=== PATIENT | female | born 1950 ===

== ENCOUNTER 2018-07-30 17:55 | Emergency (ER) | payer OTHER ==
[2018-07-30 17:55] VITALS: BMI 34.0
--- NOTE | 2018-07-30 19:55 | ED PDOC ---
HPI: General Adult Time Seen by Provider: 07/30/18 18:55 Chief Complaint (Nursing): Lower Extremity Problem/Injury Chief Complaint (Provider): Lower Extremity Problem/Injury History Per: Patient, Upper Doubler (Louise Porter # [id number]) History/Exam Limitations: language barrier Onset/Duration Of Symptoms: Other (x4 weeks) Current Symptoms Are (Timing): Still Present Additional Complaint(s): Patient is a 67 y/o female with a PMHx of HTN and hypothyroidism who presents to the ED for evaluation of multisystem pain ongoing for the past four weeks. Patient reports she had fallen on 07/03/2018 and as a result has been experiencing back pain, bilateral leg pain that is worse on the right, and lower abdominal "rumbling". Patient states she cannot stand for too long and feels like her legs are going to give out. Patient claims she went to the hospital at the time of fall and her xrays at the time demonstrated no indication of fractures or dislocations. Patient followed up with another hospital as she continued to feel discomfort and was prescribed seven days of unknown pain medication which she completed. Patient states the pain is worsening, thus, prompting todays ED visit. Of note, patient has been taking Tylenol with minimal relief of symptoms. Patient has been keeping up with her medication for HTN and hypothyroidism. Patient denies head injury, LOC, chest pain and difficulty breathing. PCP: None Past Medical History Reviewed: Historical Data, Nursing Documentation, Vital Signs Vital Signs: Last Vital Signs Temp 98.6 F 07/30/18 18:18 Pulse 79 07/30/18 18:18 Resp 16 07/30/18 18:18 BP 130/76 07/30/18 18:18 Pulse Ox 97 07/30/18 18:18 Primary Care Provider: ROLY VALENZUELA - Medical History PMH: HTN, Hypothyroidism - Surgical History Surgical History: Cholecystectomy Other surgeries: x2 hernia surgeries - Family History Family History: States: Unknown Family Hx - Immunization History Hx Tetanus Toxoid Vaccination: Yes Hx Influenza Vaccination: Yes Hx Pneumococcal Vaccination: Yes - Home Medications Home Medications: Ambulatory Orders Medication Instructions Recorded Cefpodoxime [Vantin] 40 mg PO BID #28 tab 04/12/17 Cranberry Fruit Extract [Cranberry] 500 mg PO BID #30 capsule 04/12/17 Losartan [Cozaar] 50 mg PO BID 04/12/17 Acetaminophen [Tylenol Extra 500 mg PO Q4H 07/05/18 Strength] Cyclobenzaprine [Flexeril] 5 mg PO TID #21 tab 07/05/18 Ibuprofen 200 mg PO Q6H 07/05/18 Naproxen [Naprosyn] 500 mg PO BID #20 tab 07/05/18 Neomycin/Polymyxin/Hydrocortis 3 drop AU BID 7 Days #1 bottle 07/20/18 [Cortisporin Otic Susp] Cephalexin [Keflex] 500 mg PO TID 7 Days #21 capsule 07/30/18 Cyclobenzaprine [Cyclobenzaprine 10 mg PO TID PRN #12 tab 07/30/18 HCl] Naproxen 500 mg PO BID PRN #20 tab 07/30/18 - Allergies Allergies/Adverse Reactions: Allergies Allergy/AdvReac Type Severity Reaction Status Date / Time No Known Allergies Allergy Verified 07/30/18 18:18 Review of Systems ROS Statement: Except As Marked, All Systems Reviewed And Found Negative Cardiovascular: Negative for: Chest Pain Respiratory: Negative for: Other (difficulty breathing) Gastrointestinal: Positive for: Abdominal Pain (lower tension) Musculoskeletal: Positive for: Neck Pain, Back Pain, Leg Pain Physical Exam - Reviewed Nursing Documentation Reviewed: Yes Vital Signs Reviewed: Yes - Physical Exam Comments: GENERAL APPEARANCE: Patient is awake, alert, oriented x 3, in no acute distress. SKIN: Warm, dry; (-) cyanosis. HEAD: Atraumatic. (-) swelling and tenderness, with no palpable bony defect. EYES: (-) conjunctival pallor, (-) scleral icterus, (-) nystagmus. ENMT: Mucous membranes moist. Nose: (-) tenderness. No oral trauma. Pharynx clear. Airway patent: (-) stridor. Full ROM of mandible without pain. NECK: Full ROM. (-) midline tenderness, (-) vertebral tenderness, (-) lymphade nopathy. (+) bilateral trapezius tenderness, (+) right palpable spasms CHEST AND RESPIRATORY: (-) chest wall tenderness. Lungs: (-) rales, (-) rhonchi, (-) wheezes; breath sounds equal bilaterally. HEART AND CARDIOVASCULAR: (-) irregularity; (-) murmur, (-) gallop. ABDOMEN AND GI: Soft; (-) tenderness. (-)rebound (-) guarding (-)ecchymosis BACK: Full ROM. (+) L4-S1 midline tenderness, (+) right lumbar tenderness, (+) right gluteal muscle tenderness. (+) SLR right EXTREMITIES: (-) deformity, (-) tenderness, (-) edema, (-) ecchymosis, (-) limitation of motion, distal pulses 2+. NEURO AND PSYCH: Steady gait. GCS=15. Mental status as above. 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 EOMI. (-) facial asymmetry. Tongue and uvula midline. Strength 5/5 in all extremities. No gross sensory deficits. DTRs symmetric. - ECG O2 Sat by Pulse Oximetry: 97 (RA) Pulse Ox Interpretation: Normal Medical Decision Making Medical Decision Making: Time: 1929 Impression: Multisystem Pain Plan: Lumbar Spine Complete [Rad] Decadron inj 10 mg IM Flexeril 10 mg PO Toradol 30 mg IM Hip Min 2V w/ Pelvis RT [Rad] LS Spine AP/LAT [Rad] UA 21:30 pt just provided urine sample Xrays reviewed by lumbar - no acute fracture or dislocation, mild DJD hip and pelvis R -- wrong image done, L hip was done, spoke to radiology that will re do it 22:10 hip xray R - no acute fracture or dislocation pt informed she will be contacted if any discrepancies with radiology read pending UA results 22:42 UA back shows negative urine blood and nitrates, large leukocytes, 161 WBC and 45 RBC, likely UTI, will treat with anitbiotics, pt has no abdominal tenderness pt reports feeling some improvement, neurologically intact, ambulating with steady gait Discussed results, diagnosis, treatment, return precautions and f/u with pt who is understanding, in agreement and stable for dc -------- --------- Scribe Attestation: Documented by Abundio Arriaga, acting as a scribCarmen Marie PA-C. Provider Scribe Attestation: All medical record entries made by the Scribe were at my direction and personally dictated by me. I have reviewed the chart and agree that the record accurately reflects my personal performance of the history, physical exam, medical decision making, and the department course for this patient. I have also personally directed, reviewed, and agree with the discharge instructions and disposition. Disposition - Clinical Impression Clinical Impression: UTI (urinary tract infection), Lumbago with sciatica, right side - Patient ED Disposition Is Patient to be Admitted: No Counseled Patient/Family Regarding: Studies Performed, Diagnosis, Need For Followup, Rx Given - Disposition Referrals: [facility] [Outside] Disposition: Routine/Home Disposition Time: 22:44 Condition: IMPROVED Additional Instructions: Es importante hacer un seguimiento con ash mdico de cabecera. [place] por dejarnos cuidar de ti hoy. La atencin mdica de emergencia que recibi hoy se dirigi a owen sntomas agudos. Si le recetaron algn medicamento, llnelo y tmelo segn las indicaciones. No conduzca ni elyssa alcohol cuando est tomando flexeril. Los sntomas pueden tardar varios killian en resolverse. Regrese al Departamento de Emergencias si owen sntomas empeoran, no mejoran o si tiene otros problemas. Comunquese con ash mdico dentro de 2 killian para segun nueva evaluacin y dread un seguimiento o llame a stephen de los mdicos / clnicas a los que briseno sido referido y que figuran en el formulario de Informacin de visita al paciente que se incluye en ash paquete de evelio. Lleve todos los documentos que recibi al momento del evelio junto con los medicamentos que est tomando para ash visita de seguimiento. Nuestro tratamiento no puede reemplazar la atencin mdica continua por parte de un proveedor de atencin primaria (PCP) fuera del departamento de emergencias. Prescriptions: Cephalexin [Keflex] 500 mg PO TID 7 Days #21 capsule Cyclobenzaprine [Cyclobenzaprine HCl] 10 mg PO TID PRN #12 tab PRN Reason: muscle relaxation Naproxen 500 mg PO BID PRN #20 tab PRN Reason: Pain, Moderate (4-7) Instructions: Urinary Tract Infections in Adults, Sciatica, Low Back Pain in Adults Forms: [employer] (German) Print Language: FRISIAN - POA Present On Arrival: None
[2018-07-30 22:38] LABS: SQUAMOUS EPITHIAL 5 /hpf (0-5); URINE BILIRUBIN NEGATIVE (NEGATIVE); URINE BLOOD NEGATIVE (NEGATIVE); URINE CLARITY CLOUDY (Clear); URINE COLOR BLUE (YELLOW); URINE GLUCOSE (UA) NEG (NEGATIVE); URINE LEUKOCYTE ESTERASE LARGE Leu/uL (Negative); URINE PROTEIN 30 mg/dL (NEGATIVE); URINE UROBILINOGEN 0.2-1.0 mg/dL (0.2-1.0)
[2018-07-30 23:03] VITALS: BP 140/88; PULSE 71; RESP 18
[2018-07-30 23:04] VITALS: TEMP 98
--- NOTE | 2018-07-31 08:54 | RAD ---
Date of service: 07/30/2018 PROCEDURE: HISTORY: fall x3wks ago COMPARISON: None TECHNIQUE: AP pelvis and frog's leg view. FINDINGS: No fracture or lytic lesion. Bilateral hip joint space narrowing with spurring most notable super lateral aspect each hip. Sacroiliac and pubic symphyseal joints unremarkable. Bilateral hemipelvic phleboliths. Calcifications project inferior to each ischial tuberosity/upper inner thigh/groin area Stool retention Facet hypertrophic arthrosis IMPRESSION: No fracture or lytic lesion. Bilateral hip and bilateral inferior lumbar facet arthrosis. Other findings as above.
--- NOTE | 2018-07-31 09:44 | RAD ---
Date of service: 07/30/2018 PROCEDURE: Radiographs of the Lumbar Spine. HISTORY: fall x3wks COMPARISON: No prior. TECHNIQUE: Three views obtained. FINDINGS: BONES: A 1 to 2 mm anterior subluxation of L4 relative to L5. No spondylolysis appreciated...Minimal endplate osteophytic like ridging. Increased sclerosis and superior endplate ridging per lateral view (series [id number], image 2) of L1. Sclerosis favors chronicity. Vertebral body significant loss of height to suggest a significant prior compression fracture noted. DISC SPACES: Unremarkable. OTHER FINDINGS: L4-5 bilateral facet hypertrophic arthrosis. Moderate stool retention. 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 Minimal anterior subluxation of L4 relative to L5-can be seen with degenerative ligamentous laxity-bilateral L4-5 facet hypertrophic arthrosis noted. Gross lysis seen. Superior endplate marginal osteophytosis with sub cortical sclerosis-chronicity favored over acute fracture here. Tibial body height maintained. Other findings as above.
[2018-07-31 14:45] VITALS: O2SAT 97
== END 2018-07-30 22:46 | disposition home or self-care (01) ==
LOC: H.ER 17:55
DX: M54.41 Lumbago with sciatica, right side (principal); N39.0 Urinary tract infection, site not specified; E03.9 Hypothyroidism, unspecified; I10 Essential (primary) hypertension
CPT/HCPCS: 72100; 73502; 81003; 87086; 96372; 99284; J1100; J1885